=== PATIENT | female | born 1990 | race American Indian/Alaskan Native ===

== ENCOUNTER 2016-07-24 22:14 | Emergency (ER) | payer MEDICAID ==
[~2016-07-24] VITALS: Ht 165.1 cm; Wt 84.0 kg
[2016-07-24 22:19] VITALS: Ht 165.1 cm; Wt 84.0 kg
[2016-07-25] MEDS ORDERED: ALBU8.5H3 INH (00:51)
--- NOTE | 2016-07-25 01:24 | ERD ---
ER Documentation Chief Complaint Date/Time DATE: 07/25/16 TIME: 01:23 Chief Complaint on and off sob x 5 months. no wheezing noted HPI 25-year-old female comes emergency department with shortness of breath that occurred this evening, she also states it occurs when she goes to dance class every Wednesday night. She states that she also has wheezing noted at nighttime sometimes when she goes to bed. Today she went to dancing, and it happened last week and the week prior to that. She at this time she denies any chest pain or shortness of breath. There is no history of syncope. ROS All systems reviewed and are negative except as per history of present illness. Medications Home Meds Active Scripts Albuterol Sulfate* (Proair HFA*) 8.5 Gm Hfa.aer.ad, 2 PUFF INH Q4, #1 INHALER Prov:REGGIE SALMON PA-C 07/25/16 Allergies Allergies: Coded Allergies: No Known Drug Allergies (Verified Allergy, Mild, 07/24/16) PMhx/Soc Hx Alcohol Use: No Hx Substance Use: No Hx Tobacco Use: No Physical Exam Vitals Vital Signs Date Time Temp Pulse Resp B/P Pulse Ox O2 Delivery O2 Flow Rate FiO2 07/24/16 22:19 97.9 114 20 127/60 97 Physical Exam General: Well-developed, well-nourished. The patient appears in no acute distress. HEENT: Head is normocephalic, atraumatic. No scleral icterus. Neck: Supple. Nontender. Lungs: Clear to auscultation. Normal air movement. Heart: Regular rate and rhythm. S1 and S2 are normal. No murmurs, gallops, or rubs. Abdomen: Soft, nontender, nondistended. Bowel sounds are normoactive. Extremities: No clubbing or cyanosis. Normal pulses. Moving extremities x 4. No weakness. Neurologic: Alert and oriented 3. No focal deficits. Skin: Normal turgor. No rash or lesions. Procedures/MDM 25-year-old female presents emergency department with history wheezing shortness breath associated with exercise. She states that he goes to weekly dancing class and noted her symptoms again today in the evening. At this time she is asymptomatic, her vitals are stable, she does not have any respiratory distress or wheezing. She states that she is feeling fine and I feel the patient can be discharged appropriately with an albuterol inhaler to be used at home. I have asked her to follow-up with her primary care doctor to do further tests to see if patient has underlying asthma. She does not have any respiratory distress, hypoxia, signs of pulmonary embolus, dissection, acute coronary syndrome, pneumonia. Departure Diagnosis: Primary Impression: Normal physical examination Condition: Good Patient Instructions: Asthma Medications Additional Instructions: Patient was advised to follow-up with their primary care physician in one to 2 days. If they were to develop any worsening symptoms sooner, they're to return to the ER for further evaluation. REGGIE SALMON PA-C July 25, 2016 01:24
== END 2016-07-25 01:29 | disposition home or self-care (01) ==
LOC: FTE 22:14
DX: R06.02 Shortness of breath (principal)
CPT/HCPCS: 99283